=== PATIENT | female | born 1970 | race Caucasian/White ===

== ENCOUNTER 2023-10-25 14:03 | Inpatient (IN) | payer BC, SELFPAY ==
[2023-10-25] VITALS (111 sets, daily range): BP systolic 94–148; BP diastolic 51–80; PULSE 87–124; RESP 2–28; TEMP 36.5–37.6; O2SAT 5–97
--- NOTE | 2023-10-25 14:00 | RT.EKG_ITS ---
APPROVED REPORT Exam: Resting ECG Reason for Exam: sob Patient Location: E HR:97 bpm ECG Measurements Heart Rate 97 AXIS OR 149 P 111 QRSd 97 QRS 268 QT 347 T 60 QTc 442 Conclusion Sinus rhythm rate [address] axis no acute ST segment changes
--- NOTE | 2023-10-25 14:23 | ED.GENADUL_ITS ---
Discharge Plan Disposition Patient Disposition: Admit to [facility] Condition: Stable Discharge Details Chief Complaint: SOB/SuddenOnset Clinical Impression: Acute hypoxic respiratory failure Admit Date/Time: 10/25/23 18:50 Admit Provider: Camden Reagan Attending Provider: Camden Reagan Primary Care Provider: Unknown,Unknown ED Provider: Irma Mattson Medical Decision Making Emergent evaluation of shortness of breath. Initial differential includes COPD exacerbation, viral illness, pneumonia. Patient has noted to be hypoxic. She is a longtime smoker. EKG without acute ischemic changes or tachycardia. Plan for steroids, additional bronchodilators. Currently requiring supplemental oxygen. Will check lab work and chest x-ray. 1450: Chest x-ray reviewed and independently interpreted by me, hyperexpanded lungs consistent with COPD, normal heart size, questionable right lower lobe consolidation Discussed with the hospitalist and the patient will be admitted to their service for further management of new onset COPD, COPD exacerbation and hypoxia Patient improved after albuterol treatment, magnesium also given. Did have persistent and significant desaturations after treatment and when taken off oxygen. Given her hypoxia, a CT scan was ordered to make sure that she did not have a pulmonary embolism. There is no pulmonary embolism, but the chest CT did confirm a consolidation. I discussed with the hospitalist and the patient has already been taken upstairs, so she will order IV antibiotics for this. Medical Records Medical records reviewed: Yes I reviewed the patient's medical records. Lab Data Lab results reviewed: Yes I reviewed the patient's lab results. ECG Data Attestation: I personally reviewed and interpreted this ECG (s) as follows: Prior ECG tracings: not available for review Interpretation: Sinus 97, normal axis, no acute ST segment changes HPI General Date/Time Provider Initiated Documentation: 10/25/23 14:06 . Limitations to Documentation: no limitations . Information obtained by: patient . HPI Narrative: 53-year-old female without known medical history presents for evaluation of shortness of breath. She reports that her symptoms have been ongoing for about the last 3 days. Cough and shortness of breath worsened last night. She presented to urgent care and they sent her to the emergency department due to her persistently low oxygen levels. She denies any chest pain. She does report that she smokes daily. She has no diagnosis of COPD. She does not use inhalers at home. Related Data Home Medications Medication Instructions Recorded Confirmed Unknown [No Known Home Meds] 05/10/18 10/25/23 Allergies Allergy/AdvReac Type Severity Reaction Status Date / Time Penicillins AdvReac Severe Anaphylaxsi Unverified 10/25/23 14:14 s General Stated Complaint: SOB/SuddenOnset UCHE: 2 PFSH All Active Problems (Updated 10/25/23 @ 21:45 by Irma Mattson MD) Acute hypoxic respiratory failure (Acute) Social History Smoking/Tobacco Use Status: Current every day Tobacco Type: cigarettes Years smoked: 40 Tobacco: How many years used: 40 Smoking risk assessment performed?: Yes Alcohol Intake: never Drug use: Never Substance use type: does not use Housing: house Do you feel safe at home: Yes Do you feel safe in your relationship?: Yes Exam Narrative Exam Narrative: Review of Systems: All systems reviewed & are unremarkable except as noted in HPI and below: CONSTITUTIONAL: Alert and oriented Well-developed, mild distress HEENT: NCAT EYES: PERRL, no conjunctival injection MOUTH Moist MM NECK: Symmetric, trachea midline, No thyromegaly THROAT oropharynx clear CVS: Tachycardia, No murmurs or gallops. Peripheral pulses 2+ and equal in all extremities Brisk capillary refill in all extremities. No peripheral edema RESP: Mild tachypnea and increased work of breathing Hypoxia with sat 82 to 87%, placed on 2 L nasal cannula Expiratory wheezes GI: Soft, Nontender, Nondistended, No organomegaly MSK: Extremities with full range of motion, no deformity or TTP SKIN: Warm, Dry. No rashes or lesions. NEURO: No focal neurologic deficits. Course Vital Signs Vital signs: Vital Signs Temperature 37.0 C 10/25/23 14:10 Pulse 102 H 10/25/23 14:10 Respiratory Rate 24 10/25/23 14:10 Blood Pressure 148/80 H 10/25/23 14:10 Pulse Oximetry 87 L 10/25/23 14:10 Temperature 37.0 C 10/25/23 14:10 Temperature Source Temporal Artery Scan 10/25/23 14:10 Pulse 102 H 10/25/23 14:10 Respiratory Rate 24 10/25/23 14:10 Respiratory Effort Short of Breath 10/25/23 14:15 Blood Pressure 148/80 H 10/25/23 14:10 Blood Pressure Position Sitting 10/25/23 14:10 Pulse Oximetry 87 L 10/25/23 14:10 Oxygen Delivery Method Room Air 10/25/23 14:10 Oxygen Flow Rate 0 10/25/23 14:10 Pain Level 0 10/25/23 14:10 Critical Care Time Critical Care Time Critical Care Time: Yes Total Critical Care Time: 36 Attestation: CRITICAL CARE Upon my evaluation, this patient had a high probability of imminent or life- threatening deterioration due to respiratory failure, COPD exacerbation which required my direct attention, intervention, and personal management. I have personally provided 36 minutes of critical care time exclusive of time spent on separately billable procedures. Time includes review of laboratory data, radiology results, discussion with consultants, and monitoring for potential decompensation. Interventions were performed as documented above
[2023-10-25] MEDS: Normal Saline Flush 10 ML SYR IVP ×3 (14:26→23:06)
[2023-10-25] MEDS: methylPREDNISolone SUCC 125 MG VIAL IVP (14:26)
[2023-10-25 14:34] LABS: Abs Immature Grans 0.03 10^3/uL (0.0-0.06); Absolute Basophil Count 0.01 10^3/uL (0.0-0.2); Absolute Eosinophil Count 0.01 10^3/uL (0.0-0.7); Absolute Lymphocyte Count 1.68 10^3/uL (1.2-3.4); Absolute Monocyte Count 0.59 10^3/uL (0.1-0.8); Absolute Neutrophil Count 7.11 10^3/uL (1.2-6.7); Basophils % 0.1; Eosinophils % 0.1; HGB 13.6 g/dL (11.2-15.7); Immature Grans % 0.3; Lymphocytes % 17.8; MCH 30.2 pg (27.0-33.0); MCHC 33.2 % (32.0-36.0); MCV 91 fL (80-95); MPV 10.3 fL (8.0-11.0); Monocytes % 6.3; Neutrophils % 75.4; Platelet Count 210 10^3/uL (130-400); RBC 4.51 10^6/uL (3.93-5.22); RDW 11.9 % (11.7-14.6); RDW-SD 39.6 fL; WBC 9.43 10^3/uL (4.4-10.8)
--- NOTE | 2023-10-25 14:51 | DI.RAD_ITS ---
Exam(s) XR PORTABLE CHEST AP EXAM: XR PORTABLE CHEST AP CLINICAL HISTORY: sob TECHNIQUE: 2D digital imaging was performed. COMPARISON: No exams were available for comparison FINDINGS: LUNGS: Hyperinflated. Clear. No pleural abnormality seen. HEART: Normal size. AORTA: Normal diameter. BONES: Unremarkable for age. Soft tissues: Unremarkable. IMPRESSION: No acute findings. DATA REPOSITORY: RADIATION DOSE DELIVERED:
[2023-10-25 14:56] LABS: ALT 13 U/L (14-59); AST 16 U/L (15-37); Albumin 3.5 g/dL (3.4-5.0); Alkaline Phosphatase 80 U/L (46-116); Anion Gap 11.3 mmol/L (3-11); BUN 4 mg/dL (7-18); Bilirubin, Total 0.7 mg/dL (0.2-1.0); CO2 26.7 mmol/L (21.0-32.0); CREATININE 0.8 mg/dL (0.55-1.02); Calcium 8.5 mg/dL (8.5-10.1); Chloride 97 mmol/L (98-107); Estimated GFR 88.05 (mL/min/1.73m2); Glucose 141 mg/dL (74-106); Magnesium 1.8 mg/dL (1.8-2.4); NT-proBNP 160 pg/mL (<300); Potassium 3.2 mmol/L (3.5-5.1); Sodium 135 mmol/L (136-145); Total Protein 7.2 g/dL (6.4-8.2); Troponin I < 50 ng/L (<or=60)
[2023-10-25] MEDS: Potassium Chloride Liquid 20 MEQ PKT (15:15)
[2023-10-25 15:28] LABS: COVID-19 PCR Negative (Negative); Influenza A PCR Negative (Negative); Influenza B PCR Negative (Negative); RSV PCR Negative (Negative)
[2023-10-25 15:33] LABS: Source Nasopharynx
[2023-10-25] MEDS: Normal Saline 500 ML IV (15:51)
[2023-10-25] MEDS: MAGNESIUM SULFATE 2 GM/50 ML BAG IVPB (16:58)
--- NOTE | 2023-10-25 17:40 | HPE_ITS ---
Date of service: 10/25/23 Time of Service: 17:40 Assessment and Plan Assessment and plan (1) Acute hypoxic respiratory failure: Status: Acute Assessment and plan: Still with oxygen requirements 2 to 3 L nasal cannula. X-ray showed no infiltrate. Etiology is suspected to be a COPD exacerbation but no formal diagnosis she is a smoker. She has had no fever. Given IV steroids will continue steroid burst scheduled updrafts. CAT scan for PE study was added prior to her being transferred to the medical surgical unit results are waiting at time of admission. Procalcitonin will be added to her ED labs. discussed with DR Reagan History of Present Illness History of Present Illness Chief Complaint: shortness of breath Narrative: patient referred to ED after presenting to urgent care for evaluation of shortness of breath, found to be hypoxic. is a smoker, no pcp, no formal diagnosis of COPD, work up with no definite infiltrate on plain film and treated with magnesium, steroids and hospitalist request for ongoing hypoxia with oxygen requirements. Review of Systems All systems reviewed & are unremarkable except as noted in HPI and below PFSH All Active Problems (Updated 10/25/23 @ 21:45 by Irma Mattson MD) Acute hypoxic respiratory failure (Acute) Social History Smoking/Tobacco Use Status: Current every day Tobacco Type: cigarettes Years smoked: 40 Tobacco: How many years used: 40 Smoking risk assessment performed?: Yes Alcohol Intake: never Drug use: Never Substance use type: does not use Housing: house Do you feel safe at home: Yes Do you feel safe in your relationship?: Yes Meds Allergies and Home Medications Allergies Allergy/AdvReac Type Severity Reaction Status Date / Time Penicillins AdvReac Severe Anaphylaxsi Unverified 10/25/23 14:14 s Home Medications Medication Instructions Recorded Confirmed Type Unknown [No Known Home Meds] 05/10/18 10/25/23 History ipratropium 0.5 mg-albuterol 3 mg 3 ml inhalation ONCE #3 mL 10/25/23 10/25/23 Clinic (2.5 mg base)/3 mL nebulization soln ipratropium 0.5 mg-albuterol 3 mg 3 ml inhalation ONCE #3 mL 10/25/23 10/25/23 Clinic (2.5 mg base)/3 mL nebulization soln Exam Narrative Exam Narrative: Thin female appearing older than stated age in no acute distress head is atraumatic oral mucosa is slightly dry head is atraumatic neck with full range of motion no JVD respirations are even and unlabored there diminished throughout with faint expiratory wheezing no rhonchi noted cardiovascular regular rate and rhythm she is tachycardic no murmur noted abdomen is flat extremities without edema moves all extremities skin is pink warm dry well-perfused with good peripheral pulses no rashes or lesions Results Labs 10/25/23 14:22 10/25/23 14:22 Labs: Laboratory Results - last 24 hr 10/25/23 14:22 WBC 9.43 RBC 4.51 Hgb 13.6 Hct 41.0 MCV 91 MCH 30.2 MCHC 33.2 RDW 11.9 Plt Count 210 MPV 10.3 Immature Gran % 0.3 Neutrophils % 75.4 Lymphocytes % 17.8 Monocytes % 6.3 Eosinophils % 0.1 Basophils % 0.1 Nucleated RBC % 0.0 Absolute Neutrophils 7.11 H Absolute Lymphocytes 1.68 Absolute Monocytes 0.59 Absolute Eosinophils 0.01 Absolute Basophils 0.01 Sodium 135 L Potassium 3.2 L Chloride 97 L Carbon Dioxide 26.7 Anion Gap 11.3 H BUN 4 L Creatinine 0.8 Est GFR (CKD-EPI 2020) 88.05 Glucose 141 H Calcium 8.5 Magnesium 1.8 Total Bilirubin 0.7 AST 16 ALT 13 L Alkaline Phosphatase 80 Troponin I < 50 NT-Pro-B Natriuret Pep 160 Total Protein 7.2 Albumin 3.5 COVID-19 Source Nasopharynx SARS-CoV-2 (PCR) Negative Influenza Type A (PCR) Negative Influenza Type B (PCR) Negative RSV (PCR) Negative Last Vital Signs Temp 37.0 C 10/25/23 14:10 Pulse 118 H 10/25/23 17:31 Resp 16 10/25/23 17:31 BP 146/53 H 10/25/23 17:31 Pulse Ox 97 10/25/23 15:00 Time Spent Time spent with Patient: <40 minutes Time was spent: preparing to see the patient(eg.review tests), obtaining and/or reviewing separately otained hiistory, ordering medications,tests, procedures, referring, communicating with other health child care education coordinator, indepentently interpreting results and counseling the patient
--- NOTE | 2023-10-25 17:58 | NUR.NOTE ---
patient eating dinner Nursing Note:
--- NOTE | 2023-10-25 18:30 | DI.CT_ITS ---
Exam(s) CT CHEST PE CTA EXAM: CT CHEST PE CTA CLINICAL HISTORY: sob. TECHNIQUE: Imaging Protocol: Axial CT angiography was performed with multi-slice acquisition and mu lti-planar reconstructions as well as axial, coronal and sagittal MIP reconstructions. CONTRAST MATERIAL: Intravenous: Omnipaque 350 Contrast volume:100 ml COMPARISON: CR XR PORTABLE CHEST AP from 10/25/2023 FINDINGS: Exam somewhat limited by motion at the lung bases. Pulmonary Arteries: No evidence of filling defect to suggest pulmonary emboli. Tracheobronchial tree: Mild bronchial wall thickening right middle lobe. No mucous plugging visible. Mediastinum and Bianca: No dominant adenopathy or fluid collection. Pulmonary parenchyma: Area of atelectasis or consolidation in the medial right middle lobe, adjacent to the heart border. Evaluation is somewhat limited due to respiratory motion in this area. Moder ate emphysematous changes. Pleura: No effusion or pneumothorax. Heart: The heart is not dilated. No coronary artery calcifications are seen. Aorta: Thoracic aorta non-dilated. No aneurysm. No dissection. Upper abdomen: Unremarkable. Bones: Unremarkable for age. Tubes, Catheters, and Lines: None Soft tissues: 1.6 x 0.7 centimeter nodule visible in the right breast. Mammogram and ultrasound shauna mmended if not already performed elsewhere. IMPRESSION: No evidence of pulmonary embolism. Medial right middle lobe consolidation versus atelectasis. Right breast nodule. Mammogram and ultrasound recommended if not already performed elsewhere. Unexpected findings RADIATION DOSE DELIVERED: Total DLP DATA REPOSITORY: All CT scans at this facility are submitted to the National Radiology Data Registry (NRDR) Dose Index Registry (DIR) with the [employer] (ACR). RADIATION OPTIMIZATION: All CT scans at this facility use at least one of these dose optimization te chniques: automated exposure control; mA and/or kV adjustment per patient size (includes targeted exa ms where dose is matched to clinical indication); or iterative reconstruction.
--- NOTE | 2023-10-25 19:05 | W.PC.ACHO ---
Registration Status: REG ER Primary Language: Preferred Language: Mongolian ED Information & Data Chief Complaint SOB/SuddenOnset 10/25/23 14:28 Triage Note feeling poorly since 10/25/23 14:10 cough and sob began today. was at urgent care who sent her here. is a smoker. Most Recent Vital Signs Temperature 37.0 C 10/25/23 14:10 Temperature Source Temporal Artery Scan 10/25/23 14:10 Pulse 116 H 10/25/23 18:46 Pulse 120 H 10/25/23 18:50 Respiratory Rate 18 10/25/23 18:50 Respiratory Effort Short of Breath 10/25/23 14:15 Blood Pressure 138/57 L 10/25/23 18:46 Blood Pressure Mean 75 10/25/23 18:46 Blood Pressure Position Sitting 10/25/23 14:10 Pulse Oximetry 97 10/25/23 15:00 Oxygen Delivery Method Nasal Cannula 10/25/23 15:00 Oxygen Flow Rate 2 10/25/23 14:58 Pain Level 0 10/25/23 14:10 Allergies Penicillins Adverse Reaction (Severe, Unverified 10/25/23 14:14) Anaphylaxsis Precautions Isolation Standard precaution 10/25/23 14:15 Active Medications Generic Name Dose Route Start Last Admin Trade Name Freq PRN Reason Stop Dose Admin Albuterol Sulfate 100 mg/ 0 mg 10/25/23 14:15 10/25/23 14:58 Sodium Chloride 40 ml UPD 100 mg DIRECTED SHANNON Administration Sodium Chloride 0 ml 10/25/23 14:13 10/25/23 14:26 Normal Saline Flush 10 Ml Syr IVP 10 ml PRN PRN Administration IV IV Catheter Type [Right Saline Lock Antecubital] IV Catheter Gauge [Right 18 Antecubital] Diet Orders Category Date Time Status Regular/Normal [DIET] Nutrition 10/25/23 Dinner Active Diagnostics 10/25/23 Range/Units 14:22 WBC 9.43 (4.4-10.8) 10^3/uL RBC 4.51 (3.93-5.22) 10^6/uL Hgb 13.6 (11.2-15.7) g/dL Hct 41.0 (36.0-46.0) % MCV 91 (80-95) fL MCH 30.2 (27.0-33.0) pg MCHC 33.2 (32.0-36.0) % RDW 11.9 (11.7-14.6) % Plt Count 210 (130-400) 10^3/uL MPV 10.3 (8.0-11.0) fL Immature Gran % 0.3 Neutrophils % 75.4 Lymphocytes % 17.8 Monocytes % 6.3 Eosinophils % 0.1 Basophils % 0.1 Nucleated RBC % 0.0 (0.0-0.3) % Absolute Neutrophils 7.11 H (1.2-6.7) 10^3/uL Absolute Lymphocytes 1.68 (1.2-3.4) 10^3/uL Absolute Monocytes 0.59 (0.1-0.8) 10^3/uL Absolute Eosinophils 0.01 (0.0-0.7) 10^3/uL Absolute Basophils 0.01 (0.0-0.2) 10^3/uL Sodium 135 L (136-145) mmol/L Potassium 3.2 L (3.5-5.1) mmol/L Chloride 97 L (98-107) mmol/L Carbon Dioxide 26.7 (21.0-32.0) mmol/L Anion Gap 11.3 H (3-11) mmol/L BUN 4 L (7-18) mg/dL Creatinine 0.8 (0.55-1.02) mg/dL Est GFR (CKD-EPI 2020) 88.05 (mL/min/1.73m2) Glucose 141 H (74-106) mg/dL Calcium 8.5 (8.5-10.1) mg/dL Magnesium 1.8 (1.8-2.4) mg/dL Total Bilirubin 0.7 (0.2-1.0) mg/dL AST 16 (15-37) U/L ALT 13 L (14-59) U/L Alkaline Phosphatase 80 (46-116) U/L Troponin I < 50 (<or=60) ng/L NT-Pro-B Natriuret Pep 160 (<300) pg/mL Total Protein 7.2 (6.4-8.2) g/dL Albumin 3.5 (3.4-5.0) g/dL COVID-19 Source Nasopharynx SARS-CoV-2 (PCR) Negative (Negative) Influenza Type A (PCR) Negative (Negative) Influenza Type B (PCR) Negative (Negative) RSV (PCR) Negative (Negative) Intake and Output - 24 Hour Total 10/25/23 14:03 thru 10/25/23 14:17 Intake Total 10 Balance 10 Weight 53.524 kg Intake: IV 10 Falls Risk Assessment Contributing Factors No Factors 10/25/23 14:15 Fall Total Score 0 10/25/23 14:15 Level of Risk Standard/Low Risk 10/25/23 14:15 Problems (Last Reviewed 10/25/23 @ 14:24 by Irma Mattson MD) Acute hypoxic respiratory failure (Acute) Notes 10/25/23 17:58 Nursing Notes by Alesia Haney patient eating dinner Nursing Note: Initialized on 10/25/23 17:58 - END OF NOTE v v v v v v v v v Sending and/or Receiving Nurses: Please use comment section below to note any information pertinent to the patient hand-off not included above. Information / Comments: 6lNC going on highflow Report received from: Jessica Guzman RN
[2023-10-25] MEDS: Normal Saline - Diluent 50 ML VIAL IJ (19:07)
[2023-10-25] MEDS: Omnipaque 350 MG/ML 100 ML BTL 65 ML IJ (19:13)
--- NOTE | 2023-10-25 20:05 | DI.VRAD_ITS ---
PROCEDURE INFORMATION: Exam: CTA Chest With Contrast Exam date and time: 10/25/2023 7:11 PM Age: 53 years old Clinical indication: Shortness of breath TECHNIQUE: Imaging protocol: Computed tomographic angiography of the chest with contrast. Exam focused on the arteries. 3D rendering (Not supervised by radiologist): MIP and/or 3D reconstructed images were created by the technologist. Total images: 1993 Contrast material: OMNIPAQUE 350; Contrast volume: 65 ml; Contrast route: INTRAVENOUS (IV); COMPARISON: CR XR PORTABLE CHEST AP 10/25/2023 2:44 PM FINDINGS: Pulmonary arteries: No filling defect in the pulmonary arterial tree. Aorta: No aortic aneurysm or dissection. Lungs: Minimal scarring left lung base. Bilateral multilobar moderate centrilobular emphysema. Lungs are hyperinflated. Subsegmental consolidation/atelectasis medial segment right middle lobe. No endobronchial lesion. Pleural spaces: No pneumothorax. No pleural effusion. Heart: No pericardial effusion. Coronary arteries: No coronary artery calcification. Mediastinal space: No pneumomediastinum. Lymph nodes: No mediastinal, hilar or axillary adenopathy. Liver: Hepatic steatosis. Intraperitoneal space: No free air visualized upper abdomen. Bones/joints: Upper thoracic kyphosis. Soft tissues: No soft tissue gas. 1.6 x 0.7 cm soft tissue density nodule right breast image 31 series 5. IMPRESSION: 1. No PE. 2. Moderate COPD. 3. Subsegmental right middle lobe consolidation/atelectasis. 4. Right breast nodule. Consider mammographic correlation. Dictated and Authenticated by: Neil Lane MD. Ordering:VALENTINA Jones MD
[2023-10-25] MEDS: Albuterol/Ipratropium 3 ML UPD VIAL UPD (20:17)
[2023-10-25 20:25] LABS: Lab Add On Test DONE
[2023-10-25 21:03] LABS: Procalcitonin < 0.1 ng/mL
[2023-10-26] VITALS (20 sets, daily range): BP systolic 97–122; BP diastolic 60–69; PULSE 68–97; RESP 2–20; TEMP 37.3–38.5; O2SAT 88–96
--- NOTE | 2023-10-26 03:15 | RESPIRATORY ---
RT Assessment Start: 10/25/23 22:46 Freq: .q shift and prn Status: Active Protocol: Document 10/25/23 23:01 RT.[email or web address] (Rec: 10/25/23 23:18 RT.MAGR [id number]) RT Assessment Smoking History Smoking/Tobacco Use Status Former Tobacco Use Tobacco: How many years used 40 Quit Date 10/24/23 Tobacco Type cigarettes Cigarettes per Day 10 Years smoked 40 OXYGEN HISTORY: CPAP Can use home machine No BIPAP Can you home machine No Trilogy/AVAPS Can use home machine No Current Respiratory Symptoms Current Respiratory Symptoms Cough,Shortness of breath, Sputum production Activity Activity Level Very active. Runs around with grandsons. Respiratory Breath Sounds Breath Sounds Any abnormal sounds, decreased breath sounds Response No change Pulse Rate >100 Respiratory Rate 18-25 Shortness of Breath On exertion Respiratory Therapy Score Total 4 Assessment and Plan RT Treatment Protocol Bronchodilator Aerosol Therapy Protocol,Lung Expansion Therapy Protocol,Bronchial Hygiene Therapy Protocol Note Bronchodilator Aerosol Therapy Protocol: QID Lung Expansion Therapy Protocol: Acapella and IS Q4. Bronchial Hygiene Therapy Protocol: Acapella and IS Q4. Pt. states no pulmonary history. Currently needing O2 5L/mins green HFNC to maintain SpO2>92%. No SOB noted. BBS clear and diminished, no wheezes noted. Does not use any supplemental O2 at home. Pt. would benefit from Lung Expansion Therapy, Bronchial Hygiene Therapy, and Bronchodilator Therapy.
[2023-10-26] MEDS: Acetaminophen 325 MG TAB 650 MG PO (04:10)
[2023-10-26] MEDS: levoFLOXacin 750 MG/150 ML BAG 100 MG IVPB (04:20)
[2023-10-26 04:24] LABS: Abs Immature Grans 0.05 10^3/uL (0.0-0.06); Basophils % 0.1; HCT 34.1 % (36.0-46.0); HGB 11.6 g/dL (11.2-15.7); Immature Grans % 0.4; Lymphocytes % 6.1; MCH 30.6 pg (27.0-33.0); MCV 90 fL (80-95); MPV 10.3 fL (8.0-11.0); Monocytes % 4.4; Platelet Count 198 10^3/uL (130-400); RBC 3.79 10^6/uL (3.93-5.22); RDW 12.1 % (11.7-14.6); RDW-SD 39.9 fL; WBC 13.51 10^3/uL (4.4-10.8)
[2023-10-26 04:34] LABS: Absolute Basophil Count 0.01 10^3/uL (0.0-0.2); Absolute Lymphocyte Count 0.82 10^3/uL (1.2-3.4); Absolute Monocyte Count 0.59 10^3/uL (0.1-0.8); Absolute Neutrophil Count 12.02 10^3/uL (1.2-6.7)
[2023-10-26 04:42] LABS: Anion Gap 9.5 mmol/L (3-11); BUN 4 mg/dL (7-18); CO2 28.5 mmol/L (21.0-32.0); CREATININE 0.7 mg/dL (0.55-1.02); Calcium 8.2 mg/dL (8.5-10.1); Chloride 98 mmol/L (98-107); Estimated GFR 103.35 (mL/min/1.73m2); Glucose 174 mg/dL (74-106); Sodium 136 mmol/L (136-145)
[2023-10-26 05:00] LABS: Potassium 2.8 mmol/L (3.5-5.1)
--- NOTE | 2023-10-26 06:20 | NUR.NOTE ---
Pt recoieved on 6 L NC plan to start high flow per POST ACUTE CARE NURSE PRACTITIONER . able to titrate 02 to 5l Sa02 . Sa02 at rest 95% drops to 88 with exertion Nursing Note:
[2023-10-26] MEDS: Potassium Chloride Liquid 20 MEQ PKT 40 MEQ PO (07:01)
[2023-10-26 07:16] LABS: Lab Add On Test DONE
[2023-10-26] MEDS: POTASSIUM CHLORIDE 20 MEQ/100 ML BAG 50 MEQ IVPB ×2 (07:27→10:47)
[2023-10-26 07:31] LABS: Magnesium 2.1 mg/dL (1.8-2.4)
[2023-10-26] MEDS: Albuterol/Ipratropium 3 ML UPD VIAL UPD ×4 (07:40→19:42)
[2023-10-26] MEDS: Normal Saline Flush 10 ML SYR IVP ×2 (08:23→20:05)
[2023-10-26] MEDS: predniSONE 20 MG TAB 40 MG PO (08:23)
--- NOTE | 2023-10-26 10:15 | INITIAL_ITS ---
Date of service: 10/26/23 Time of Service: 10:23 Care Management Initial Assmt Initial Assessment REASON FOR HOSPITALIZATION:: hypoxic respiratory failure PREVIOUS FUNCTIONAL STATUS/SOCIAL/FAMILY SUPPORTS:: Tyesha lives in [place] with her s/o, Jamil (Luis). She has three adult children, who all live in [place]. She has a step daughter, who lives in [place] with one of her two grandchildren. Her other grandchild lives in [place]. 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 She is independent at baseline. CURRENT FUNCTIONAL STATUS:: Tyesha was sitting up in her chair when CM met with her. She stated that she is doing much better today than yesterday; her O2 requirement is down from 6-7LO2 to 2LO2. She reported that she does not have supplemental O2 at home. She reported that she is independent at home, still works radio time buyer, and does not expect to require any services upon discharge. Tyesha expressed interest in quitting smoking. She stated that she is doing well currently, and not using any nicotine replacements. She stated that she understands that she is in a controlled setting, and is interested in resources that she may need upon discharge home; CM will provide her with info and send a referral to [facility] to follow up with her post discharge. Tyesha does not currently have a PCP and is interested in obtaining one. CM set up a follow up appointment at [facility] for November 02 at 2:30pm. CM explained that this is a follow up visit, and she can establish care while at that appointment. CM will continue to follow. ADVANCE DIRECTIVES:: Not on file at [facility]. CM will offer forms. Has patient been provided with info about the portal/API?: Yes Did the patient sign up for the portal?: No CODE STATUS:: Full Code INSURANCE COVERAGE / FINANCIAL ISSUES:: BC/BS CURRENT HOME/COMMUNITY SERVICES/EQUIPMENT:: None. PRIMARY CARE PHYSICIAN:: unknown POTENTIAL DISCHARGE NEEDS:: Evaluations for further needs, follow up appointments. PATIENT/FAMILY EDUCATION NEEDS:: Review discharge instructions and limitations, discussion of self care needs including ask me three. ANTICIPATED BARRIERS TO DISCHARGE:: None identified. TRANSPORTATION:: Via private vehicle by family. PLAN:: Anticipate Tyesha will return home once medically cleared. Her s/o will drive her home via private vehicle. She will follow up with her PCP and discharge plan of care. CM will continue to follow. PFSH All Active Problems (Updated 10/26/23 @ 11:53 by Camden Reagan MD) Breast nodule (Acute) Community acquired pneumonia of right middle lobe of lung (Acute) Acute hypoxic respiratory failure (Acute) Social History Smoking/Tobacco Use Status: Former Tobacco Use Quit Date: 10/24/23 Tobacco: How many years used: 40 Smoking risk assessment performed?: Yes Alcohol Intake: never Drug use: Never Substance use type: does not use Housing: house Do you feel safe at home: Yes Do you feel safe in your relationship?: Yes
--- NOTE | 2023-10-26 11:35 | PGE_ITS ---
Date of Service Date of service: 10/26/23 Time of Service: 11:35 Assessment and Plan Assessment and plan (1) Acute hypoxic respiratory failure: Status: Acute Assessment and plan: Acute hypoxemic respiratory failure due to COPD exacerbation and superimposed right middle lobe community-acquired pneumonia. Initially this was thought to be due to atelectasis however last night she had a fever she is coughing up purulent sputum. Sputum cultures have been sent and urine for Legionella and strep antigen have also been ordered. Patient was started on Levaquin 750 mg daily. Will add Mucinex to her pulmonary regimen and continue with DuoNeb treatments and as needed albuterol treatments and steroids. Patient is interested in smoking cessation we talked about different techniques for sustaining a non-smoking habit. Recommend nicotine patches supplement with either nicotine gum or nicotine lozenges. But she understands that this is merely a substitute for the nicotine in the cigarettes and ultimately needs to wean off of the nicotine as well. Hopefully we can get her weaned off oxygen before she returns home but I did explain that sometimes we have to discharge foster mendoza's home on oxygen. (2) Community acquired pneumonia of right middle lobe of lung: Status: Acute (3) COPD exacerbation: Status: Suspected (4) Breast nodule: Status: Acute Assessment and plan: right breast nodule found on CT scan. I will discuss w/ her as to what kind of screening exams she has had and if she has not had a mammogram, then I will order this as outpatient upon discharge. If she already has had a mammogram then she needs a diagnostic mammogram and possible breast MRI. Addendum (13:16): I did discuss w/ her the finding of a right breast nodule. She has not had routine screening mammograms and has no PCP. KAPIL Lagos) will be setting her up w/ a PCP at discharge. I indicated to the patient that I would order a screening mammogram to be done following discharge. I also indicated the need for follow up imaging of her lungs to be sure that the right sided infiltrate clears up. Subjective Subjective Interval history since last seen: Tyesha is feeling much better today. She is coughing up some purulent mucous now. But she is breathing better today although she felt exhausted after her shower. She is still requiring oxyge. She is on 2 lpm and saturation of 93%. Exam Narrative Exam Narrative: She will sitting up in her chair she is alert and orient x 3 no acute distress able to talk in complete paragraphs. Lungs are clear anteriorly posteriorly she had some diminished breath sounds no rhonchi or wheezes Heart is regular rate and rhythm Abdomen soft and nontender nondistended Extremities without peripheral edema or cyanosis. Objective Last Vital Signs Temp 37.3 C 10/26/23 07:51 Pulse 86 10/26/23 07:51 Resp 18 10/26/23 07:51 BP 102/69 10/26/23 07:51 Pulse Ox 94 10/26/23 10:55 Laboratory Results - last 24 hr 10/25/23 10/26/23 14:22 03:48 WBC 9.43 13.51 H RBC 4.51 3.79 L Hgb 13.6 11.6 D Hct 41.0 34.1 L MCV 91 90 MCH 30.2 30.6 MCHC 33.2 34.0 RDW 11.9 12.1 Plt Count 210 198 MPV 10.3 10.3 Immature Gran % 0.3 0.4 Neutrophils % 75.4 89.0 Lymphocytes % 17.8 6.1 Monocytes % 6.3 4.4 Eosinophils % 0.1 0.0 Basophils % 0.1 0.1 Nucleated RBC % 0.0 0.0 Absolute Neutrophils 7.11 H 12.02 H Absolute Lymphocytes 1.68 0.82 L Absolute Monocytes 0.59 0.59 Absolute Eosinophils 0.01 0.00 Absolute Basophils 0.01 0.01 Sodium 135 L 136 Potassium 3.2 L 2.8 L* Chloride 97 L 98 Carbon Dioxide 26.7 28.5 Anion Gap 11.3 H 9.5 BUN 4 L 4 L Creatinine 0.8 0.7 Est GFR (CKD-EPI 2020) 88.05 103.35 Glucose 141 H 174 H Calcium 8.5 8.2 L Magnesium 1.8 2.1 Total Bilirubin 0.7 AST 16 ALT 13 L Alkaline Phosphatase 80 Troponin I < 50 NT-Pro-B Natriuret Pep 160 Total Protein 7.2 Albumin 3.5 Procalcitonin < 0.1 COVID-19 Source Nasopharynx SARS-CoV-2 (PCR) Negative Influenza Type A (PCR) Negative Influenza Type B (PCR) Negative RSV (PCR) Negative Add-On Test Request DONE DONE Time Spent with Patient Time Spent with Patient: 35-49 minutes Time was spent: preparing to see the patient(eg.review tests), obtaining and/or reviewing separately otained hiistory, ordering medications,tests, procedures, referring, communicating with other health mall plant caretaker (discussion w/ nursing, CM and my nurse practitioner who admitted the patient yesterday), indepentently interpreting results, counseling the patient and care coordination
[2023-10-26] MEDS: guaiFENesin 200 MG/10 ML CUP PO (11:48)
--- NOTE | 2023-10-26 17:34 | CHAPLAIN ---
Tyesha moved out to Med/Surg from the ICU today, and she said she's feeling better. I explained my role and introduced myself. Tyesha said her three children live in [place], but she's in touch with them by phone. Her boyfriend and step daughter are local and have been visiting.
[2023-10-26 20:40] LABS: Legionella Ag Detection Urine Negative (Negative)
[2023-10-27] VITALS (12 sets, daily range): BP systolic 99–116; BP diastolic 56–75; PULSE 86–98; RESP 9–18; TEMP 37.1–37.6; O2SAT 86–96
[2023-10-27] MEDS: levoFLOXacin 750 MG/150 ML BAG 100 MG IVPB (04:06)
[2023-10-27] MEDS: Albuterol 2.5 MG/3 ML INH SOLN VIAL UPD ×2 (04:25→06:19)
[2023-10-27] MEDS: Normal Saline Flush 10 ML SYR IVP ×2 (08:21→19:52)
[2023-10-27] MEDS: predniSONE 20 MG TAB 40 MG PO (08:21)
[2023-10-27] MEDS: Albuterol/Ipratropium 3 ML UPD VIAL UPD ×4 (08:32→19:51)
--- NOTE | 2023-10-27 08:41 | RESPIRATORY ---
RT Assessment Start: 10/25/23 22:46 Freq: .q shift and prn Status: Active Protocol: Document 10/27/23 08:36 RT.TREMAINE (Rec: 10/27/23 08:40 [email or web address].[email or web address] [id number]) RT Assessment Pulmonary History Pulmonary History COPD Smoking History Smoking/Tobacco Use Status Former Tobacco Use Tobacco: How many years used 40 Quit Date 10/24/23 Tobacco Type cigarettes Cigarettes per Day 10 Years smoked 40 OXYGEN HISTORY: CPAP Can use home machine No BIPAP Can you home machine No Trilogy/AVAPS Can use home machine No Current Respiratory Symptoms Current Respiratory Symptoms Shortness of breath Activity Activity Level Very active. Runs around with grandsons. Respiratory Breath Sounds Breath Sounds Any abnormal sounds, decreased breath sounds Response No change Pulse Rate <100 Respiratory Rate <18 Shortness of Breath On exertion Respiratory Therapy Score Total 2 Assessment and Plan RT Treatment Protocol Lung Expansion Therapy Protocol,Bronchial Hygiene Therapy Protocol Note Pt still experiencing SOB with exertion but advising coughing and sputum amount very minimal compared to admission. Continue deep breathing/coughing, IS and acapella while awake
--- NOTE | 2023-10-27 09:25 | W.PM.PROGNOT ---
Date of Service Date of service: 10/27/23 Time of Service: 09:26 Assessment and Plan Assessment and plan (1) Acute hypoxic respiratory failure: Status: Acute Assessment and plan: Secondary to combination of pneumonia and COPD exacerbation. Continue Levaquin 750 mg daily along with prednisone 40 mg daily and scheduled DuoNeb treatments. Add Spiriva to her regimen. Encourage cough and deep breathing and use of incentive spirometry and Acapella device. Robitussin did help loosen her cough according to the patient. Professional time spent interviewing and examining patient, discussion of goals of care with hospital team (care management, nursing and consulting professionals) was 30 minutes. (2) Community acquired pneumonia of right middle lobe of lung: Status: Acute Assessment and plan: As above. Patient will need to have follow-up imaging in 3 to 4 weeks to ensure resolution of her infiltrate. (3) COPD exacerbation: Status: Suspected Assessment and plan: As above. Patient should have formal PFTs and 4 to 6 weeks after resolution of her pneumonia (4) Breast nodule: Status: Acute Assessment and plan: right breast nodule found on CT scan. Patient is aware of the abnormal finding and will be set up for diagnostic mammogram upon discharge (5) Hypokalemia: Status: Acute Assessment and plan: Patient is receiving oral supplementation. We will recheck her levels now. Subjective Subjective Interval history since last seen: Tyesha states that she is having a worse day this morning. She is more short of breath with minimal activity. Still coughing up purulent mucus. However her oxygen needs have improved she has been on 1 L/min per nasal cannula and her SpO2 is 91%. I was going to have her perform an exercise oximetry test today to see if she can be discharged home but in light of her worsening cough and dyspnea we will hold off discharge until tomorrow. Hopefully 1 more day of steroids and bronchodilators and antibiotics will make a difference. I will add Spiriva to her regimen. I encouraged her to ambulate as much as she can tolerate and to use her I-S and acapella. She has not been vaccinated for her Pneumovax or influenza vaccine so we will order that. Exam Narrative Exam Narrative: Alert and orient x 3 sitting up in the chair talking with her . She is mildly dyspneic with prolonged conversation but not using accessory respiratory muscles Right lung base with coarse rhonchi and expiratory wheezes left side is clear but with diffusely diminished breath sounds Heart is regular rate and rhythm Abdomen soft nondistended Extremities without edema Objective Last Vital Signs Temp 37.1 C 10/27/23 07:34 Pulse 92 H 10/27/23 08:35 Resp 14 10/27/23 08:32 BP 100/63 10/27/23 07:34 Pulse Ox 91 L 10/27/23 08:32 Time Spent with Patient Time Spent with Patient: 25-34 minutes Time was spent: preparing to see the patient(eg.review tests), ordering medications,tests, procedures, referring, communicating with other health childcare attendant, indepentently interpreting results, counseling the patient and care coordination
[2023-10-27] MEDS: Potassium Chloride Liquid 20 MEQ PKT 40 MEQ PO (09:37)
[2023-10-27 10:55] LABS: Anion Gap 9.5 mmol/L (3-11); BUN 8 mg/dL (7-18); CO2 27.5 mmol/L (21.0-32.0); CREATININE 0.8 mg/dL (0.55-1.02); Calcium 8.4 mg/dL (8.5-10.1); Chloride 101 mmol/L (98-107); Estimated GFR 88.05 (mL/min/1.73m2); Glucose 146 mg/dL (74-106); Magnesium 1.9 mg/dL (1.8-2.4); Potassium 4.2 mmol/L (3.5-5.1); Sodium 138 mmol/L (136-145)
[2023-10-27] MEDS: Tiotropium Bromide-Respimat 10 PUFF INH 2 PUFF IH (12:23)
--- NOTE | 2023-10-27 16:06 | NUR.NOTE ---
Walked with pt for 80 feet outside of room with portable oxygen at 1L. Os sat at 91% after returning to her room.ursing Note:
[2023-10-27] MEDS: guaiFENesin 200 MG/10 ML CUP PO (20:21)
[2023-10-28] MEDS: levoFLOXacin 750 MG/150 ML BAG 100 MG IVPB (03:47)
[2023-10-28 03:55] VITALS: O2SAT 92
[2023-10-28 03:57] VITALS: O2SAT 92
[2023-10-28 06:58] LABS: Anion Gap 8.1 mmol/L (3-11); BUN 8 mg/dL (7-18); CO2 28.9 mmol/L (21.0-32.0); CREATININE 0.6 mg/dL (0.55-1.02); Calcium 8.4 mg/dL (8.5-10.1); Chloride 103 mmol/L (98-107); Estimated GFR 107.26 (mL/min/1.73m2); Glucose 90 mg/dL (74-106); Potassium 3.6 mmol/L (3.5-5.1); Sodium 140 mmol/L (136-145)
[2023-10-28 07:32] VITALS: PULSE 63; RESP 14; RESP 9; O2SAT 92
[2023-10-28] MEDS: Albuterol/Ipratropium 3 ML UPD VIAL UPD (07:32)
[2023-10-28] MEDS: Tiotropium Bromide-Respimat 10 PUFF INH 2 PUFF IH (07:32)
[2023-10-28 07:34] VITALS: O2SAT 92
[2023-10-28 07:35] VITALS: PULSE 69
[2023-10-28] MEDS: predniSONE 20 MG TAB 40 MG PO (07:38)
[2023-10-28] MEDS: Normal Saline Flush 10 ML SYR IVP (07:38)
[2023-10-28 07:47] VITALS: BP 103/62; PULSE 70; RESP 18; TEMP 36.3; O2SAT 93
--- NOTE | 2023-10-28 08:55 | DSE_ITS ---
Date of service: 10/28/23 Time of Service: 08:55 DS: Diagnosis Discharge Diagnosis (1) Acute hypoxic respiratory failure: Status: Acute Asessment and Plan: Initially presented with shortness of breath and acute hypoxic respiratory failure send to be secondary to a combination of community-acquired pneumonia and COPD without formal COPD diagnosis. Patient had significant improvement with Levaquin and prednisone was ultimately transition to room air for roughly 24 hours prior to discharge. She will be discharged with additional 2 days of prednisone and Levaquin, as well as outpatient pulmonary follow-up and PFTs. (2) Community acquired pneumonia of right middle lobe of lung: Status: Acute (3) COPD exacerbation: Status: Suspected (4) Breast nodule: Status: Acute Asessment and Plan: Outpatient mammogram referral sent (5) Hypokalemia: Status: Acute Discharge Plan Disposition Patient Disposition: Home Condition: Good Discharge Details Reason For Visit: Hypoxic Respiratory Failure Admit Date/Time: 10/25/23 18:50 Admit Provider: Camden Reagan Attending Provider: Camden Reagan Primary Care Provider: Unknown,Unknown Hospital Course Hospital Course: Patient was admitted for acute hypoxic respiratory failure due to combination of pneumonia and COPD exacerbation. Patient does not have formal diagnosis of COPD, however presentation is highly suspicious, therefore it is recommended that she has pulmonary follow-up, and pulmonary function test at discharge. She was treated with Levaquin and prednisone as well as nebulizers. She will be discharged with an additional 2 days of Levaquin and 2 days of p.o. prednisone. Home Meds and New Rx's Prescriptions: New Spiriva Respimat 2.5 mcg/actuation Mist 2 puff inhalation DAILY Qty: 4 2RF prednisone 5 mg tablet 40 mg PO DAILY Qty: 16 0RF levofloxacin 250 mg/10 mL solution 750 mg PO DAILY Qty: 60 0RF Discharge Instructions Instructions: COPD (Chronic Obstructive Pulmonary Disease) (DC), Chronic Lung Disease and Infection Prevention (DC) Referrals: Marbella Spencer MD [ [facility] STAFF PHYSICIAN] - (new COPD, recent hops for exacerbation, also needs PFTs) Activity:: Activity as Tolerated Equipment/Supplies:: No Equipment Needed Diet:: As Tolerated Discharge Orders Discharge Orders: Discharge Order (Routine); Ordered 10/28/23 Ordered By: Bj Delgado Other Ambulatory Orders: [facility] mammo screening (Routine) Timeframe: 1 Month Location: None Selected Ordered By: Bj Delgado PFT (Ian/DLCO/Volumes) (Routine) Timeframe: 2 Weeks Location: None Selected Ordered By: Bj Delgado DS: Summary Time Spent with Patient providing and/or coordinating discharge services: Greater than 30 minutes Status at Discharge Functional status at discharge: independent ambulation Overall status at discharge: patient is back to baseline Mental Status: mental status grossly normal Speech and Movement: speech and movement normal Mood: congruent mood Affect: normal affect Exam Narrative Exam Narrative: Well-appearing older female sitting up on the edge of the bed and in no acute distress, ANO x 4, heart regular rhythm, lungs clear to auscultation bilaterally, abdomen soft, nontender nondistended Psych Mental Status: mental status grossly normal Speech and Movement: speech and movement normal Mood: congruent mood Affect: normal affect DS: Data Vitals/I&O Vitals and I&O: Vital Signs Temperature 97.3 F L 10/28/23 07:47 Temperature Source Tympanic 10/28/23 07:47 Pulse 70 10/28/23 07:47 Pulse Rhythm Regular 10/28/23 07:50 Pulse 92 H 10/25/23 23:19 Respiratory Rate 18 10/28/23 07:47 Respiratory Effort Normal 10/28/23 07:50 Respiratory Depth Normal 10/28/23 07:50 Respiratory Pattern Normal 10/28/23 07:50 Blood Pressure 103/62 10/28/23 07:47 Blood Pressure Mean 80 10/26/23 07:51 Blood Pressure Position Sitting 10/25/23 23:44 Pulse Oximetry 93 10/28/23 07:47 Oxygen Delivery Method Room Air 10/28/23 07:47 Oxygen Flow Rate 0 10/28/23 07:47 Pain Level 0 10/28/23 07:54 Comment Following updraft. 10/27/23 04:43 Intake & Output 10/27/23 10/28/23 10/28/23 17:59 05:59 17:59 Intake Total 1410 / 1410 20 / 1430 170 / 170 Balance 1410 / 1410 20 / 1430 170 / 170 Intake: IV 150 / 150 20 / 170 170 / 170 Oral 1260 / 1260 Other: Urine Color Yellow Urine Appearance Clear Clear Clear Comment pT voided when up to the toliet voids independently. Voiding Methods Toilet Toilet Data Completed and Pending Labs on day of discharge: Labs from last 24 hours 10/28/23 10/27/23 10/27/23 06:22 14:00 10:30 Sodium 140 138 Potassium 3.6 Cancelled 4.2 D Chloride 103 101 Carbon Dioxide 28.9 27.5 Anion Gap 8.1 9.5 BUN 8 8 Creatinine 0.6 0.8 Est GFR (CKD-EPI 2020) 107.26 88.05 Glucose 90 146 H Calcium 8.4 L 8.4 L Magnesium 1.9 Urine Legionella Ag 10/26/23 06:44 Sodium Potassium Chloride Carbon Dioxide Anion Gap BUN Creatinine Est GFR (CKD-EPI 2020) Glucose Calcium Magnesium Urine Legionella Ag Negative 10/26/23 06:54 Sputum Sputum Culture - Pending Preliminary micro results at discharge 10/26/23 03:48 Blood Culture - Preliminary Blood NO GROWTH 48 HOURS 10/26/23 03:48 Blood Culture - Preliminary Blood NO GROWTH 48 HOURS 10/26/23 06:54 Sputum Culture - Pending Sputum PFSH All Active Problems (Updated 10/27/23 @ 09:44 by Camden Reagan MD) Hypokalemia (Acute) Breast nodule (Acute) Community acquired pneumonia of right middle lobe of lung (Acute) Acute hypoxic respiratory failure (Acute) Social History Smoking/Tobacco Use Status: Former Tobacco Use Quit Date: 10/24/23 Tobacco: How many years used: 40 Smoking risk assessment performed?: Yes Alcohol Intake: never Drug use: Never Substance use type: does not use Housing: house Do you feel safe at home: Yes Do you feel safe in your relationship?: Yes Time Spent with Patient Time Spent with Patient: <45 minutes Time was spent: preparing to see the patient(eg.review tests), obtaining and/or reviewing separately otained hiistory, ordering medications,tests, procedures, referring, communicating with other health clinical care manager, indepentently interpreting results, counseling the patient and care coordination
--- NOTE | 2023-10-28 11:00 | PDOC.CMDIS ---
Date of service: 10/28/23 Time of Service: 11:00 LACE Index Scoring Tool Questions: Length of Stay (in days): 3 Was the patient admitted via the E.D.?: Yes Comorbidities: Chronic Pulmonary Disease E.D. Visits: 0 Answers: Total Score: 8 Risk of Readmission: Low Risk Care Management Discharge Plan Reason for Hospitalization: hypoxic respiratory failure Discharge Plan: Tyesha returned home today with no new services. Her s/o drove her home via private vehicle. KAPIL coordinated a follow up appointment at [facility] on November 02 at 2:30pm; she plans to establish care at that f/u visit. KAPIL provided a return to work letter for Tyesha, stating that she may return to work after medical clearance by her PCP, likely on 11/05/23, as requested by . She will follow up with her PCP and discharge plan of care. She is happy to be going home. Patient/Family Education Needs: Review discharge instructions and limitations, discussion of self care needs including ask me three.
[2023-10-29 16:20] LABS: Mycoplasma Pneumoniae PCR Negative (Negative); Specimen source Sputum
== END 2023-10-28 10:31 | disposition home or self-care (01) | DRG 193 ==
LOC: ER 16:19 → ICU 19:41 → MS 10-27 12:46
PROVIDERS: Internal Medicine; Nurse Practitioner Acute Care; Admitting Provider Internal Medicine; Emergency Provider Emergency Medicine; Visit Provider Internal Medicine
DX: J18.9 Pneumonia, unspecified organism (principal); J96.01 Acute respiratory failure with hypoxia; J44.0 Chronic obstructive pulmonary disease with (acute) lower respiratory infection; J44.1 Chronic obstructive pulmonary disease with (acute) exacerbation; E87.6 Hypokalemia; N63.10 Unspecified lump in the right breast, unspecified quadrant; F17.210 Nicotine dependence, cigarettes, uncomplicated
CPT/HCPCS: 00123; 36410; 36415; 71275; 80048; 80053; 84145; 87040; 87449; 87637; 93005; 94640; 96365; 96366; 96375; 99291; 71045; 83735; 83880; 84132; 84484; 85025; 87070; 87205; 87581; 93010; 94664; 94667; 94668; 94760; 99222; 99232; 99233; 99239; J1956; J2930; J3480; J3490; J7512; J7611; J7613; J7620

== ENCOUNTER → 2023-11-06 01:09 | Outpatient (CLI) | payer BC, SELFPAY ==
--- NOTE | 2023-11-06 07:30 | DI.MAMMO_ITS ---
Exam(s) US BREAST RT COMPLETE MG MAMMO DIAGNOSTIC BI EXAM: MG MAMMO DIAGNOSTIC BI AND COMPLETE RIGHT BREAST ULTRASOUND CLINICAL HISTORY: R breast mass,n63.10. TECHNIQUE: Bilateral CC and MLO mammographic images were obtained with 3D tomosynthesis technique an lis utilizing computer aided detection (CAD). Also performed additional exaggerated CC spot view of th e right breast because of findings on the recent chest CT scan. Complete right breast ultrasound was performed including all 4 quadrants as well as the axillary carey on. COMPARISON: None. This is baseline diagnostic study due to findings in the lateral right breast see n on recent chest CT scan. Patient claims that she has always had ???lumpy breasts???. She denies f eeling a new mass. FINDINGS: DIAGNOSTIC BILATERAL MAMMOGRAM: Fibroglandular tissue pattern is moderately dense. There are no spiculated masses nor malignant-appearing microcalcification groups in either breast. T he area of concern on the recent CT scan corresponds to normal-appearing dense tissue on the 3D mammo gram. No significant architectural distortion or skin thickening-traction. COMPLETE RIGHT BREAST ULTRASOUND: No evidence of solid or significant cystic lesions in all 4 quadrants. The right axilla is negative for adenopathy. IMPRESSION: 1. Moderately dense fibroglandular tissue but no radiographic evidence of malignancy. 2. Negative complete right breast ultrasound Appropriate follow-up is to keep this patient on a yearly mammogram schedule, with earlier imaging if a self detected breast change is noted.. The patient was informed of the findings and follow-up recommendations by myself prior to leaving the department today. BI-RADS Category 2 - Benign Findings Breast Density - Category C - Heterogeneously dense Breast density Category C or D implies that the patient has dense breast tissue. Dense breast tissue can make it harder to find cancer on a mammogram. Dense breast tissue is also associated with an incr eased risk of breast cancer. This information about the result of the mammogram report was provided to the patient to raise their awareness. Use this report when you speak with the patient about their risks for breast cancer, which includes their family history. At that time, you may recommend additional screening tests (Ultrasoun d or MRI) as these tests may add significant information. A negative radiographic report should not delay biopsy if a dominant or clinically suspicious mass is present. Up to ten percent of cancers are not identified on mammography. A negative report may reinforce clinical impression. Adenosis and dense breasts may obscure an underlying neoplasm. False positive reports average 6 to 10%. Patient will receive a letter notifying them of these results.
== END ==
PROVIDERS: Visit Provider Emergency Medicine
DX: N63.10 Unspecified lump in the right breast, unspecified quadrant (principal); Z12.31 Encounter for screening mammogram for malignant neoplasm of breast
CPT/HCPCS: 76642; 77062; 77066; G0279

== ENCOUNTER 2023-11-26 04:05 | Outpatient (CLI) | payer BC, SELFPAY ==
[2023-11-26] MEDS: Levalbuterol HFA 15 GM INH 4 PUFF IH (16:49)
[2023-11-26] MEDS: Inhaler, Assist Device 1 EACH MC (16:49)
--- NOTE | 2023-11-27 08:38 | W.PFT ---
Date of service: 11/26/23 Time of Service: 15:26 Pulmonary Function Test Result Indications: Emphysema Interpretation Spirometry: There is severe airflow limitation. There is no significant bronchodilator response. Lung Volumes: Patient refused due to claustrophobia Diffusion Capacity: Decreased diffusion Impression There is severe airflow obstruction with a decreased diffusion consistent with COPD with emphysema. Clinical Correlation therefore is recommended.
== END 2023-11-26 04:06 | disposition home or self-care (01) ==
LOC: RT 04:06
PROVIDERS: Visit Provider Student in an Organized Health Care Education/Training Program
DX: J43.9 Emphysema, unspecified (principal)
CPT/HCPCS: 94060; 94729

== ENCOUNTER 2024-01-27 12:52 | Emergency (ER) | payer BC, SELFPAY ==
[2024-01-27 12:58] VITALS: BP 132/86; PULSE 80; RESP 15; TEMP 36.8; O2SAT 96
--- NOTE | 2024-01-27 13:38 | W.ED.GENAD ---
Discharge Plan Disposition Patient Disposition: Home Discharge Details Clinical Impression: Pain and swelling of left ankle Primary Care Provider: Hero Pollock ED Provider: Lion Adame Home Meds and New Rx's Prescriptions: Continued albuterol sulfate 90 mcg/actuation HFA aerosol inhaler 2 puff inhalation Q6H PRN (Reason: shortness of breath or wheezing) Qty: 8.5 3RF Stiolto Respimat 2.5-2.5 mcg/actuation mist 2 puff inhalation DAILY Qty: 4 12RF Discharge Instructions Instructions: Leg Pain (ED) Additional Instructions: You were seen in the emergency department for your leg pain. Your x-ray showed no sign of any fractures. Your bedside ultrasound showed no sign of any DVTs. A formal ultrasound of your left lower extremity has been ordered for tomorrow to assess for any DVTs. The radiology department will call you. Please return to the emergency department as we discussed if you develop any redness swelling of your leg or if you develop any fevers. For your pain please take medications as follows: 1. Take acetaminophen (Tylenol), 1,000 mg (two 500 mg tabs) every 6 hours [2. Take ibuprofen (Advil), 400 mg every 6 hours.] Discharge Data Discharge Date/Time-TO BE ENTERED AT DEPARTURE: 01/27/24 19:13 HPI General Date/Time Provider Initiated Documentation: 01/27/24 13:15. HPI Narrative: MDM This is an overall very well-appearing normothermic and not tachycardic 53-year-old female with left ankle and foot pain concerning for early DVT versus crystal arthropathy versus early cellulitis. No pain out of proportion to suggest necrotizing soft tissue infection. No history of recent fluoroquinolone use and no significant trauma to left calf and negative Joe test so my suspicion is low for Achilles tendon rupture so I did not feel that the patient required immobilization. Patient's foot is warm & well-perfused and patient is not a smoker nor a vasculopath so my suspicion is low for aortic occlusion, aortic dissection, and any significant peripheral vascular disease so I did not feel that the patient required a CTA with runoffs. Given warm well-perfused left foot I was not concerned for critical limb ischemia. No history of gout and no significant joint swelling so I did not feel that the patient required an arthrocentesis. Patient had good range of motion in her left ankle and no fevers nor erythema so my suspicion for septic joint was low. No erythema to suggest cellulitis though patient could certainly be early on a developing cellulitis. At this point no indication for IV antibiotics. No fluctuance to suggest abscess. I obtained an x-ray of the patient's left ankle and this was negative for any acute osseous abnormalities. Given no significant trauma my suspicion for ligamentous injury was low so I felt that the risks of immobilization outweigh the benefits. I considered DVT as the patient has significant maternal family history of DVT. Given my negative bedside ultrasound and the patient's negative D-dimer I felt that the risks of anticoagulation outweigh the benefits. I considered acute heart failure however the patient has no bilateral symptoms no shortness of breath and no history of CHF. Nonetheless to increase sensitivity for DVT I ordered an outpatient left lower extremity duplex study to be performed tomorrow, 01/28/2024. I advised the patient in the interim to return to the emergency department if she developed worsening calf and ankle pain swelling erythema or loss sensation or motor function in her left foot. Patient understood her return indications and she was discharged with empiric trial of expectant outpatient management. For analgesia I advised acetaminophen and ibuprofen. HPI This is a 53-year-old former smoker arriving to the emergency department via private vehicle in the setting of left ankle pain. Patient notes that 2 days ago at work she developed left ankle pain. She said that she was at rest when she developed it. She says that when she stood up to stand if felt worse. She has noticed some mild swelling of her left ankle. Pain is worse when she walks around. Her pain is centered on the posterior aspect of her left ankle radiates down into her foot and up into her left calf. There is significant family history on her mother side of DVTs and PEs. Patient has never had a PE nor DVT. She has no history of gout. She denies chest pain or shortness of breath. She has not recently been on any antibiotics. She denies abdominal pain nausea and vomiting. She denies routine tobacco, ethanol, and illicits. No recent fevers. Exam General: Well-appearing in no acute distress speaking in complete sentences. Head: Normocephalic, atraumatic. Eye:[Pupils equal, round reactive to light.] Extraocular eye movements intact. No conjunctival injection. No scleral icterus. Ear, nose, mouth, throat: Grossly normal inspection. Normal voice, handling secretions normally. Neck: Trachea midline. Cardiovascular: Well-perfused distal extremities. Respiratory: Nonlabored respiration. Gastrointestinal: Nondistended abdomen. Musculoskeletal: Left ankle with mild swelling compared to right. Negative Joe test on the left. Left foot warm and well-perfused with 2+ PT DP pulses. Cap refill less than 2 seconds to the left toes. 5 out of 5 strength on dorsi and plantarflexion of left foot. No erythema to left foot nor ankle. No fluctuance. No lacerations. No ecchymoses. Patient is able to straight leg raise. She can fully flex and extend at the knee. She has full range of motion in her left ankle. Sensation intact in the dorsal webspace between the great and second toe. Skin: Normal for age and race, grossly normal temperature and turgor. No acute rash. Neurologic: Alert and appropriate, no apparent acute deficits. Psychiatric: Mood and manner are appropriate. Grooming and personal hygiene are appropriate. Related Data Home Medications Medication Instructions Recorded Confirmed albuterol sulfate 90 mcg/actuation 2 puff inhalation Q6H PRN 11/16/23 01/27/24 aerosol inhaler shortness of breath or wheezing #8.5 grams tiotropium 2.5 mcg-olodaterol 2.5 2 puff inhalation DAILY #4 grams 11/20/23 01/27/24 mcg/actuation mist for inhalation (Stiolto Respimat) Previous Rx's Medication Instructions Recorded albuterol sulfate 90 mcg/actuation 2 puff inhalation Q6H PRN 11/16/23 aerosol inhaler shortness of breath or wheezing #8.5 grams tiotropium 2.5 mcg-olodaterol 2.5 2 puff inhalation DAILY #4 grams 11/20/23 mcg/actuation mist for inhalation (Stiolto Respimat) Allergies Allergy/AdvReac Type Severity Reaction Status Date / Time Penicillins AdvReac Severe Anaphylaxsi Unverified 01/18/24 08:01 s General Stated Complaint: Orthopedic UCHE: 3 Course Vital Signs Vital signs: Vital Signs Temperature 36.8 C 01/27/24 12:58 Pulse 80 01/27/24 12:58 Respiratory Rate 15 01/27/24 12:58 Blood Pressure 132/86 01/27/24 12:58 Pulse Oximetry 96 01/27/24 12:58 Temperature 36.8 C 01/27/24 12:58 Temperature Source Oral 01/27/24 12:58 Pulse 80 01/27/24 12:58 Respiratory Rate 15 01/27/24 12:58 Respiratory Effort Normal 01/27/24 13:00 Blood Pressure 132/86 01/27/24 12:58 Blood Pressure Position Sitting 01/27/24 12:58 Pulse Oximetry 96 01/27/24 12:58 Oxygen Delivery Method Room Air 01/27/24 12:58 Oxygen Flow Rate 0 01/27/24 12:58 Pain Level 4 01/27/24 12:58 Medical Decision Making Quality:SDOH Health Related Social Needs: No Data to Display PFSH All Active Problems (Updated 01/27/24 @ 16:21 by Lion Adame MD) Pain and swelling of left ankle (Acute) Pulmonary nodules (Acute) Personal history of nicotine dependence (Acute) Ex-smoker for less than 1 year (Chronic) 25 pack years, quit 10/20 Emphysema lung (Acute) Breast mass, right (Acute) Breast nodule (Acute) Medical History (Updated 01/27/24 @ 16:21 by Lion Adame MD) CAP (community acquired pneumonia) Respiratory failure Broken arm Surgical History (Updated 11/19/23 @ 09:07 by Bonnie Recinos) History of cholecystectomy Family History (Updated 11/19/23 @ 09:06 by Bonnie Recinos) Father Cancer Social History (Updated 11/19/23 @ 09:05 by Bonnie Recinos) Smoking/Tobacco Use Status: Former Tobacco Use Quit Date: 10/24/23 Tobacco: How many years used: 40 Quit status: quit date established Second Hand Exposure: No Smoking risk assessment performed?: Yes Alcohol Intake: never Drug use: Never Substance use type: does not use Adopted: No Caregiver/Support person: No Foster care: No Household members: significant other Housing: house Number of Children: 3 number of grandchildren: 1 Communication Needs: Corrective Lenses Education Level: college Do you need help understanding health information?: Never 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 Pets and animals: No Sexually active: Yes Do you think of yourself as: straight/heterosexual Current gender identity: female What is your relationship status?: living with partner How often do you talk on the phone with friends or family?: three or more times per week How often do you get together with friends or relatives?: twice per week Do you belong to any clubs or organized social groups?: no Panel score (0-1 are the most socially isolated patients): 2 Duration: 30-45 minutes/day Frequency: 3-4 times per week Special mike needs: No Seatbelt use: always Helmet use: Yes Drive 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
--- NOTE | 2024-01-27 13:45 | DI.RAD_ITS ---
Exam(s) XR ANKLE LT COMPLETE EXAM: XR ANKLE LT COMPLETE CLINICAL HISTORY: Left ankle swelling TECHNIQUE: 2D digital imaging was performed of the left ankle. Three images were obtained. AP, lat eral and oblique views were obtained. COMPARISON: No exams were available for comparison FINDINGS: BONES: No acute fracture is present. No bony destructive lesion is seen. JOINTS:The ankle mortise is normally aligned. SOFT TISSUE: Normal. IMPRESSION: No acute fracture or dislocation. DATA REPOSITORY: RADIATION DOSE DELIVERED:
[2024-01-27 14:51] LABS: Abs Immature Grans 0.02 10^3/uL (0.0-0.06); Absolute Basophil Count 0.04 10^3/uL (0.0-0.2); Absolute Eosinophil Count 0.09 10^3/uL (0.0-0.7); Absolute Lymphocyte Count 3.16 10^3/uL (1.2-3.4); Absolute Monocyte Count 0.41 10^3/uL (0.1-0.8); Absolute Neutrophil Count 3.91 10^3/uL (1.2-6.7); Basophils % 0.5; Eosinophils % 1.2; HCT 44.4 % (36.0-46.0); HGB 14.3 g/dL (11.2-15.7); Immature Grans % 0.3; Lymphocytes % 41.4; MCH 29.4 pg (27.0-33.0); MCHC 32.2 % (32.0-36.0); MCV 91 fL (80-95); MPV 9.9 fL (8.0-11.0); Monocytes % 5.4; Neutrophils % 51.2; Platelet Count 265 10^3/uL (130-400); RBC 4.87 10^6/uL (3.93-5.22); RDW 12.6 % (11.7-14.6); RDW-SD 42.2 fL; WBC 7.63 10^3/uL (4.4-10.8)
--- NOTE | 2024-01-27 14:53 | DI.VRAD_ITS ---
PROCEDURE INFORMATION: Exam: XR Left Ankle Exam date and time: 01/27/2024 2:15 PM Age: 53 years old Clinical indication: Pain; Ankle; Left; Patient HX: No known trauma TECHNIQUE: Imaging protocol: Radiologic exam of the left ankle. Views: 3 or more views. COMPARISON: No relevant prior studies available. FINDINGS: Bones/joints: There is no evidence of acute fracture.There is no evidence of malalignment or dislocation. Mild degenerative changes in the medial and lateral malleolus Soft tissues: Normal. IMPRESSION: There is no evidence of acute fracture.There is no evidence of malalignment or dislocation. Dictated and Authenticated by: Ry Aguilar MD. Ordering:ROBB Seymour MD
[2024-01-27 15:06] LABS: Anion Gap 9.2 mmol/L (3-11); BUN 11 mg/dL (7-18); CO2 26.8 mmol/L (21.0-32.0); CREATININE 0.6 mg/dL (0.55-1.02); Calcium 8.6 mg/dL (8.5-10.1); Chloride 104 mmol/L (98-107); Estimated GFR 107.26 (mL/min/1.73m2); Glucose 99 mg/dL (74-106); Potassium 3.8 mmol/L (3.5-5.1); Sodium 140 mmol/L (136-145)
[2024-01-27 15:32] LABS: D-Dimer 352 ng/mlFEU (<500)
== END 2024-01-27 19:13 | disposition home or self-care (01) ==
PROVIDERS: Emergency Provider Emergency Medicine; PCP Family Medicine
DX: M25.572 Pain in left ankle and joints of left foot (principal); Z87.891 Personal history of nicotine dependence
CPT/HCPCS: 80048; 93971; 99284; 73610; 85025; 85379

== ENCOUNTER 2024-03-10 10:32 | Emergency (ER) | payer BC, SELFPAY ==
[2024-03-10 10:44] VITALS: BP 133/72; PULSE 91; RESP 16; TEMP 36.7; O2SAT 95
--- NOTE | 2024-03-10 12:16 | NUR.NOTE ---
Nursing Note: Pt left without being seen
== END 2024-03-10 12:20 ==
PROVIDERS: PCP Family Medicine
DX: Z53.21 Procedure and treatment not carried out due to patient leaving prior to being seen by health care provider (principal)

== ENCOUNTER 2024-05-15 19:31 | Emergency (ER) | payer BC, SELFPAY ==
--- NOTE | 2024-05-15 19:30 | DI.RAD_ITS ---
Exam(s) XR FINGER RT LITTLE EXAM: XR FINGER RT LITTLE CLINICAL HISTORY: pain. TECHNIQUE: 2D digital imaging was performed. COMPARISON: No exams were available for comparison FINDINGS: 3 views No evidence of acute fracture or dislocation. Bone density normal. No osseous lesions nor erosions. No degenerative changes. No radiopaque foreign body. IMPRESSION: No significant osseous findings in the 5th finger. DATA REPOSITORY: RADIATION DOSE DELIVERED:
[2024-05-15 19:33] VITALS: BP 156/78; PULSE 86; RESP 16; TEMP 37; O2SAT 100
--- NOTE | 2024-05-15 19:44 | ED.GENADUL_ITS ---
Discharge Plan Disposition Patient Disposition: Home Condition: Stable Discharge Details Clinical Impression: Contusion of left little finger Primary Care Provider: Hero Pollock ED Provider: Emery Yo Home Meds and New Rx's Prescriptions: Continued albuterol sulfate 90 mcg/actuation HFA aerosol inhaler 2 puff inhalation Q6H PRN (Reason: shortness of breath or wheezing) Qty: 8.5 3RF Stiolto Respimat 2.5-2.5 mcg/actuation mist 2 puff inhalation DAILY Qty: 4 12RF Discharge Instructions Additional Instructions: If pain is not improving within a week follow-up with your primary care provider If you feel more ill or feel like you are suffering from an emergent medical process return to the emergency department for reevaluation You can take 600 mg of ibuprofen and 1000 mg of Tylenol every 6 hours as needed, icing will also help with the swelling. HPI General Mode of arrival: ambulatory . Date/Time Provider Initiated Documentation: 05/15/24 19:40 . Limitations to Documentation: no limitations . Information obtained by: patient . History of Present Illness 53 year old F presents to the emergency department with the chief complaint of right pinky finger injury, described as moderate, Quality is described as aching, and is localized to the right and upper extremity. Patient started experiencing t his day(s) (1) and it has been constant. Rest improves symptom(s), Movement worsens symptoms . Patient notes no other symptoms.. Patient did receive the following treatments prior to arrival, none Related Data Home Medications ?Medication ?Instructions ?Recorded ?Confirmed albuterol sulfate 90 mcg/actuation 2 puff inhalation Q6H PRN 11/16/23 05/15/24 aerosol inhaler shortness of breath or wheezing #8.5 grams tiotropium 2.5 mcg-olodaterol 2.5 2 puff inhalation DAILY #4 grams 11/20/23 05/15/24 mcg/actuation mist for inhalation (Stiolto Respimat) Previous Rx's ?Medication ?Instructions ?Recorded albuterol sulfate 90 mcg/actuation 2 puff inhalation Q6H PRN 11/16/23 aerosol inhaler shortness of breath or wheezing #8.5 grams tiotropium 2.5 mcg-olodaterol 2.5 2 puff inhalation DAILY #4 grams 11/20/23 mcg/actuation mist for inhalation (Stiolto Respimat) Allergies Allergy/AdvReac Type Severity Reaction Status Date / Time Penicillins AdvReac Severe Anaphylaxsi Unverified 05/15/24 19:36 s General Stated Complaint: Orthopedic UCHE: 3 Review of Systems All systems reviewed & are unremarkable except as noted in HPI and below Constitutional Constitutional: Denies chills, Denies fever(s) and Denies weakness Respiratory Respiratory: Denies cough Gastrointestinal Gastrointestinal: Denies abdominal pain, Denies nausea and Denies vomiting Musculoskeletal Musculoskeletal: Denies joint swelling Neurologic Neurologic: Denies weakness Exam Const General: no acute distress Orientation: alert [facility] Head: normal to inspection Ears: external ears normal General nose exam: external nose normal Mouth: moist mucous membranes Eyes General: appearance normal, both eyes and all related structures Neck Neck: normal visual inspection Resp Effort & Inspection: normal respiratory effort and able to speak in complete sentences Cardio Rate: regular rate Skin General skin exam: no rashes or lesions noted Neuro General: patient alert and patient oriented x3 Extrem General: capillary refill normal Psych Mental Status: mental status grossly normal Course Vital Signs Vital signs: Vital Signs Temperature 37.0 C 05/15/24 19:33 Pulse 86 05/15/24 19:33 Respiratory Rate 16 05/15/24 19:33 Blood Pressure 156/78 H 05/15/24 19:33 Pulse Oximetry 100 05/15/24 19:33 Temperature 37.0 C 05/15/24 19:33 Pulse 86 05/15/24 19:33 Respiratory Rate 16 05/15/24 19:33 Blood Pressure 156/78 H 05/15/24 19:33 Pulse Oximetry 100 05/15/24 19:33 Pain Level 9 05/15/24 19:33 Medical Decision Making 53-year-old female comes in with a right pinky finger injury. She says last night she was using a log splitter and got her finger crushed in the machine. She did not fall or hit her head or sustain any other injuries. She has pain and swelling of the distal left pinky so came here for evaluation. The distal left pinky has swollen and bruised. She has intact sensation and cap refill, she is able to range fully with extension and flexion at the PIP, DIP and MCP joint. Suspect fracture versus contusion will obtain x-rays to further evaluate. No findings on exam to suggest neurovascular or tendon injury. Patient stable, I do not see an obvious fracture, V rad turnaround time is over an hour and patient does not want a wait which I feel is reasonable. Will call her if they see if anything of note to discuss if there was a small nondisplaced fracture will likely heal on its own. Advised to follow-up with her PCP if needed return precautions given Differential Diagnosis Differential Diagnosis: Fracture, contusion Imaging Data Radiologic Study: Attestation: I personally reviewed and interpreted this imaging study as follows: Imaging: X-Ray My impression: No acute findings Quality:SDOH Health Related Social Needs: No Data to Display PFSH All Active Problems (Updated 05/15/24 @ 20:30 by Emery Yo MD) Contusion of left little finger (Acute) Pulmonary nodules (Acute) Personal history of nicotine dependence (Acute) Ex-smoker for less than 1 year (Chronic) 25 pack years, quit 10/20 Emphysema lung (Acute) Breast mass, right (Acute) Breast nodule (Acute) Medical History (Updated 05/15/24 @ 20:30 by Emery Yo MD) CAP (community acquired pneumonia) Respiratory failure Broken arm Surgical History (Updated 11/19/23 @ 09:07 by Bonnie Recinos) History of cholecystectomy Family History (Updated 11/19/23 @ 09:06 by Bonnie Recinos) Father Cancer Social History (Updated 11/19/23 @ 09:05 by Bonnie Recinos) Smoking/Tobacco Use Status: Former Tobacco Use Quit Date: 10/24/23 Tobacco: How many years used: 40 Quit status: quit date established Second Hand Exposure: No Smoking risk assessment performed?: Yes Alcohol Intake: never Drug use: Never Substance use type: does not use Adopted: No Caregiver/Support person: No Foster care: No Household members: significant other Housing: house Number of Children: 3 number of grandchildren: 1 Communication Needs: Corrective Lenses Education Level: college Do you need help understanding health information?: Never 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 Pets and animals: No Sexually active: Yes Do you think of yourself as: straight/heterosexual Current gender identity: female What is your relationship status?: living with partner How often do you talk on the phone with friends or family?: three or more times per week How often do you get together with friends or relatives?: twice per week Do you belong to any clubs or organized social groups?: no Panel score (0-1 are the most socially isolated patients): 2 Duration: 30-45 minutes/day Frequency: 3-4 times per week Special mike needs: No Seatbelt use: always Helmet use: Yes Drive 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
--- NOTE | 2024-05-15 21:14 | DI.VRAD_ITS ---
Addendum created by Manolo Wooten MD on 05/15/2024 9:13:58 PM EDT: Correction: Exam performed is three views of the right 5th finger. Initial report created on 05/15/2024 9:13:21 PM EDT: PROCEDURE INFORMATION: Exam: XR Left Finger(s) Exam date and time: 05/15/2024 7:59 PM Age: 53 years old Clinical indication: Pain; Finger(s); Right; Additional info: Injury yesterday TECHNIQUE: Imaging protocol: Radiologic exam of the left fingers. Views: Minimum 2 views. COMPARISON: No relevant prior studies available. FINDINGS: Bones/joints: Osseous alignment is normal. No acute fracture. No significant arthritic change. Soft tissues: Normal. IMPRESSION: Negative right 5th finger Dictated and Authenticated by: Manolo Wooten MD. Ordering:ELENI Land MD
== END 2024-05-15 20:42 | disposition home or self-care (01) ==
LOC: ER 20:30 → RED 20:42
PROVIDERS: Emergency Provider Emergency Medicine; PCP Family Medicine
DX: S60.052A Contusion of left little finger without damage to nail, initial encounter (principal); Z87.891 Personal history of nicotine dependence; W31.89XA Contact with other specified machinery, initial encounter; Y93.89 Activity, other specified
CPT/HCPCS: 29130; 99283; 73140

== ENCOUNTER 2025-07-14 03:30 | Outpatient (CLI) | payer OTHER, SELFPAY ==
--- NOTE | 2025-07-14 06:30 | DI.MAMMO_ITS ---
Exam(s) MAMMO SCREENING EXAM: MAMMO SCREENING CLINICAL HISTORY: screening,Z12.39. TECHNIQUE: Bilateral full field digital CC and MLO mammographic images were obtained with 3D tomosynthesis and utilizing computer aided detection (CAD). COMPARISON: Prior mammograms were reviewed. FINDINGS: There has been no significant change in the appearance and distribution of the fibroglandular tissue. There are no CAD designations There are no new spiculated masses nor malignant appearing microcalcification groups. There is no significant architectural distortion nor skin thickening-retraction. IMPRESSION: No radiographic evidence of malignancy. BI-RADS Category 1 - Negative Breast Density - Category C - The breast are heterogeneously dense, which may obscure small masses. Breast density Category C or D implies that the patient has dense breast tissue. Dense breast tissue can make it harder to find cancer on a mammogram. Dense breast tissue is also associated with an increased risk of breast cancer. This information about the result of the mammogram report was provided to the patient to raise their awareness. Use this report when you speak with the patient about their risks for breast cancer, which includes their family history. At that time, you may recommend additional screening tests (Ultrasound or MRI) as these tests may add significant information. A negative radiographic report should not delay biopsy if a dominant or clinically suspicious mass is present. Up to ten percent of cancers are not identified on mammography. A negative report may reinforce clinical impression. Adenosis and dense breasts may obscure an underlying neoplasm. False positive reports average 6 to 10%. Patient will receive a letter notifying them of these results.
== END 2025-07-14 03:50 ==
PROVIDERS: PCP Family Medicine; Visit Provider Family Medicine
DX: Z12.31 Encounter for screening mammogram for malignant neoplasm of breast (principal); R92.323 Mammographic fibroglandular density, bilateral breasts
CPT/HCPCS: 77063; 77067